=== PATIENT | female | born 1935 | race Caucasian/White ===

== ENCOUNTER → 2019-05-05 | Outpatient (CLI) | payer MEDICARE ==
[2019-05-05 13:36] LABS: HCT 43.4 % (34.0-46.0); HGB 14.4 gm/dL (11.4-16.0); MCH 30.7 pg (25.0-35.0); MCHC 33.2 g/dL (31.0-37.0); MCV 92.7 fL (80.0-100.0); Mean Platelet Volume 9.4; Platelet Count 169 k/uL (150-450); RBC 4.67 m/uL (3.80-5.40); RDW 12.5 % (11.5-15.5)
[2019-05-05 16:39] LABS: African American GFR (CKD) 92.2 (60.0-200.0); Albumin/Globulin Ratio 2.11 (1.60-3.17); BUN/Creat Ratio 24.29 Ratio (12.00-20.00); Calcium 9.7 mg/dL (8.7-10.3); Chol/HDL Ratio 2.68; Globulin 1.9 g/dL (1.6-3.3); LDL Cholesterol,Calculated 120.6 mg/dL (0.0-131.0); Non-African American GFR(CKD) 79.6 (60.0-200.0); Potassium 4.5 mmol/L (3.5-5.5); Total Bilirubin 0.7 mg/dL (0.2-1.2); Total Protein 5.9 g/dL (6.2-8.2); VLDL Calculation 13.4 mg/dL (5.00-40.00)
[2019-05-05 16:47] LABS: T4, Free (Free Thyroxine) 1.1 ng/dL (0.80-1.80)
[2019-05-05 17:00] LABS: Hemoglobin A1C 5.8 % (4.0-6.0)
== END | disposition home or self-care (01) ==
LOC: LABWHC1 10:29
PROVIDERS: ATTEND Family Medicine
DX: I10 Essential (primary) hypertension (principal); R00.2 Palpitations; K21.9 Gastro-esophageal reflux disease without esophagitis; E78.5 Hyperlipidemia, unspecified
CPT/HCPCS: 36415; 80053; 80061; 83036; 84439; 84443; 85027

== ENCOUNTER → 2020-10-18 | Outpatient (CLI) | payer MEDICARE ==
--- NOTE | 2020-10-18 10:13 | FL ---
EXAMINATION TYPE: FL barium swallow DATE OF EXAM: 10/18/2020 CLINICAL HISTORY: Early satiety TECHNIQUE: A double contrast esophagram is performed utilizing air and barium. A total of 1 minute and 12 seconds of fluoroscopic time was utilized during procedure and 55 images obtained. COMPARISON: None FINDINGS: The esophagus shows normal motility and emptying into the stomach. No evidence of hiatal h ernia or stricture noted. No significant gastroesophageal reflux was seen during real time performanc e of this study. There are multiple tertiary contractions. There is delayed emptying of the esophagus. There is extrin sic compression upon the esophagus due to the aorta and degenerative changes of the cervical spine wi thout significant narrowing. IMPRESSION: 1. Multiple tertiary contractions and delayed emptying of the esophagus without significant narrowing seen. 2. Extrinsic compression upon the esophagus is seen due to a tortuous aorta and degenerative changes of the cervical spine without significant narrowing identified.
== END | disposition home or self-care (01) ==
LOC: RADUSWWP 09:09
PROVIDERS: ATTEND Internal Medicine
DX: K22.8 Other specified diseases of esophagus (principal); I77.1 Stricture of artery; M47.812 Spondylosis without myelopathy or radiculopathy, cervical region; R63.4 Abnormal weight loss
CPT/HCPCS: 74220